=== PATIENT | male | born 1990 | race Caucasian/White ===

== ENCOUNTER 2017-01-14 21:29 | Emergency (ER) | payer OTHER ==
[2017-01-14 21:44] VITALS: BP 138/97; PULSE 113; RESP 20; TEMP 98.6
--- NOTE | 2017-01-14 21:59 | ED ---
ENT HPI - General Chief complaint: Dental/Oral Stated complaint: jaw pain Time Seen by Provider: 01/14/17 21:50 Source: patient Mode of arrival: ambulatory Limitations: no limitations - History of Present Illness Initial comments: 26-year-old male patient presents to emergency department today for evaluation of left lower dental pain. Patient states that this area has an bothering him on and off for the last 6 months. Patient states he has been in senior care and unable to see a dentist. Patient states his current episode has been going on for the last 4 months. He has completed one round of antibiotics roughly 3 months ago. Patient states has been taking Tylenol and ibuprofen for pain control which has been ineffective. Patient denies any fever, chills, nausea, vomiting, chest pain, shortness of breath, or any other difficulties. - Related Data Previous Rx's Medication Instructions Recorded Acetaminophen-Codeine 300-30mg 1 tab PO Q4H PRN #20 tablet 01/14/17 [Tylenol #3] Penicillin V Potassium [Pen Vee K] 500 mg PO QID #40 tab 01/14/17 Allergies Allergy/AdvReac Type Severity Reaction Status Date / Time No Known Allergies Allergy Verified 01/14/17 21:51 Review of Systems ROS Statement: Those systems with pertinent positive or pertinent negative responses have been documented in the HPI. ROS Other: All systems not noted in ROS Statement are negative. Past Medical History Past Medical History: Asthma, GERD/Reflux History of Any Multi-Drug Resistant Organisms: MRSA Date of last positivie culture/infection: 2010 MDRO Source:: penis Past Surgical History: Adenoidectomy, Appendectomy, Tonsillectomy Past Psychological History: Depression Smoking Status: Current every day smoker Past Alcohol Use History: None Reported Past Drug Use History: Marijuana General Exam Limitations: no limitations General appearance: alert, in no apparent distress Eye exam: Present: normal appearance, PERRL, EOMI. Absent: scleral icterus, conjunctival injection, periorbital swelling ENT exam: Present: normal exam, normal oropharynx, mucous membranes moist, TM's normal bilaterally, other (Dental caries noted to tooth #17 and 18.) Neck exam: Present: normal inspection. Absent: tenderness, meningismus, lymphadenopathy Respiratory exam: Present: normal lung sounds bilaterally. Absent: respiratory distress, wheezes, rales, rhonchi, stridor Cardiovascular Exam: Present: regular rate, normal rhythm, normal heart sounds. Absent: systolic murmur, diastolic murmur, rubs, gallop, clicks GI/Abdominal exam: Present: soft, normal bowel sounds. Absent: distended, tenderness, guarding, rebound, rigid Neurological exam: Present: alert, oriented X3, CN II-XII intact Psychiatric exam: Present: normal affect, normal mood Skin exam: Present: warm, dry, intact, normal color. Absent: rash Course Vital Signs 01/14/17 21:40 Temperature 98.6 F Pulse Rate 113 H Respiratory 20 Rate Blood Pressure 138/97 O2 Sat by Pulse 98 Oximetry Medical Decision Making - Medical Decision Making 26-year-old male patient presented for evaluation of left lower dental pain. Physical exam revealed multiple dental caries to the 17th and 18th tooth. Patient will be given a prescription for antibiotics as well as pain medication to get him through until he follows up with a dentist. Patient given number for the dental clinic in town here. Patient also instructed to return for any new, worsening, or concerning symptoms. Patient verbalizes understanding and agrees with this plan. Disposition Clinical Impression: Dental caries, Pain due to dental caries Disposition: HOME SELF-CARE Condition: Stable Instructions: Toothache (ED), Dental Caries (ED) Additional Instructions: Please follow up with the [facility] dental clinic. [facility] [place] [address]. Phone number for new patients or for existing patients. Take pain medications as directed. Return for new , worsening, or concerning symptoms. Prescriptions: Acetaminophen-Codeine 300-30mg [Tylenol #3] 1 tab PO Q4H PRN #20 tablet PRN Reason: pain Penicillin V Potassium [Pen Vee K] 500 mg PO QID #40 tab Referrals: None,Stated [Primary Care Provider] - 1-2 days Time of Disposition: 21:59
[2017-01-14] MEDS ORDERED: ACET/COD 300 MG/30 MG STARTER PACK 6 TAB BTL PO STA (22:35)
== END 2017-01-14 22:39 | disposition home or self-care (01) ==
LOC: EC 21:29
DX: K02.9 Dental caries, unspecified (principal); R68.84 Jaw pain; F17.200 Nicotine dependence, unspecified, uncomplicated
CPT/HCPCS: 99283

== ENCOUNTER 2017-03-15 23:20 | Emergency (ER) | payer OTHER ==
[2017-03-16] MEDS ORDERED: PENICILLIN V POTASSIUM 250 MG TAB PO STA (00:37)
[2017-03-16] MEDS ORDERED: Acetaminophen-Codeine 300-30mg TAB PO STA (00:37)
--- NOTE | 2017-03-16 00:41 | ED ---
ENT HPI - General Chief complaint: ENT Stated complaint: Tooth Pain Time Seen by Provider: 03/16/17 00:31 Source: patient, RN notes reviewed Mode of arrival: ambulatory Limitations: no limitations - History of Present Illness Initial comments: This is a 27-year-old male presents emergency department for dental pain. Patient has left lower dental pain for last 2 weeks. Patient states her some swelling. Denies fever or chills. Patient had prior dental problems in the past. Patient has not attempted see the dentist. He states ibuprofen was helping the pain no relief at this time. - Related Data Previous Rx's Medication Instructions Recorded Acetaminophen-Codeine 300-30mg 1 tab PO Q4H PRN #20 tablet 03/16/17 [Tylenol #3] Penicillin V Potassium [Pen Vee K] 500 mg PO QID #40 tab 03/16/17 Allergies Allergy/AdvReac Type Severity Reaction Status Date / Time No Known Allergies Allergy Verified 03/15/17 23:46 Review of Systems ROS Statement: Those systems with pertinent positive or pertinent negative responses have been documented in the HPI. ROS Other: All systems not noted in ROS Statement are negative. Past Medical History Past Medical History: Asthma, GERD/Reflux History of Any Multi-Drug Resistant Organisms: MRSA Date of last positivie culture/infection: 2010 MDRO Source:: penis Past Surgical History: Adenoidectomy, Appendectomy, Tonsillectomy Past Psychological History: Depression Smoking Status: Current every day smoker Past Alcohol Use History: None Reported Past Drug Use History: Marijuana General Exam Limitations: no limitations General appearance: alert, in no apparent distress ENT exam: Present: mucous membranes moist. Absent: normal oropharynx (dental caries, no abscess) Neck exam: Present: normal inspection, full ROM. Absent: tenderness, meningismus, lymphadenopathy Respiratory exam: Present: normal lung sounds bilaterally. Absent: respiratory distress, wheezes, rales, rhonchi, stridor Cardiovascular Exam: Present: regular rate, normal rhythm, normal heart sounds. Absent: systolic murmur, diastolic murmur, rubs, gallop, clicks Course Vital Signs 03/15/17 23:44 Temperature 98.6 F Pulse Rate 50 L Respiratory 16 Rate Blood Pressure 184/116 O2 Sat by Pulse 98 Oximetry Disposition Clinical Impression: Pain due to dental caries Disposition: HOME SELF-CARE Condition: Stable Instructions: Toothache (ED) Additional Instructions: Please return if symptoms worsen or any other concerns Prescriptions: Acetaminophen-Codeine 300-30mg [Tylenol #3] 1 tab PO Q4H PRN #20 tablet PRN Reason: pain Penicillin V Potassium [Pen Vee K] 500 mg PO QID #40 tab Referrals: Александр Liriano MD [Primary Care Provider] - 1-2 days Time of Disposition: 00:40
[2017-03-16 00:54] VITALS: BP 157/86; PULSE 62; RESP 17; TEMP 98.7
== END 2017-03-16 00:52 | disposition home or self-care (01) ==
LOC: EC 23:20
DX: K02.9 Dental caries, unspecified (principal); F17.200 Nicotine dependence, unspecified, uncomplicated; Z86.14 Personal history of Methicillin resistant Staphylococcus aureus infection
CPT/HCPCS: 99282

== ENCOUNTER 2017-03-21 21:05 | Emergency (ER) | payer OTHER ==
--- NOTE | 2017-03-21 21:46 | ED ---
ENT HPI - General Chief complaint: Dental/Oral Stated complaint: Dental Pain Time Seen by Provider: 03/21/17 21:27 Source: patient Mode of arrival: ambulatory Limitations: no limitations - History of Present Illness MD complaint: tooth pain -: month(s) Location: tooth # (18) Severity: severe Quality: aching Consistency: constant Improves with: other medication Worsens with: none Context- Dental: history of dental caries Associated Symptoms: toothache - Related Data Previous Rx's Medication Instructions Recorded Penicillin V Potassium [Pen Vee K] 500 mg PO QID #40 tab 03/16/17 Acetaminophen-Codeine 300-30mg 1 tab PO Q4H PRN #20 tablet 03/21/17 [Tylenol w/codeine #3] Ibuprofen [Motrin] 600 mg PO Q8HR PRN #20 tab 03/21/17 Penicillin V Potassium [Pen Vee K] 500 mg PO QID #28 tab 03/21/17 Allergies Allergy/AdvReac Type Severity Reaction Status Date / Time No Known Allergies Allergy Verified 03/21/17 21:15 Review of Systems ROS Statement: Those systems with pertinent positive or pertinent negative responses have been documented in the HPI. ROS Other: All systems not noted in ROS Statement are negative. Constitutional: Denies: fever, chills Eyes: Denies: eye pain, vision change ENT: Reports: dental pain. Denies: ear pain Respiratory: Denies: cough, dyspnea Neurological: Denies: headache Past Medical History Past Medical History: Asthma, GERD/Reflux History of Any Multi-Drug Resistant Organisms: MRSA Date of last positivie culture/infection: 2010 MDRO Source:: penis Past Surgical History: Adenoidectomy, Appendectomy, Tonsillectomy Past Psychological History: Depression Smoking Status: Current every day smoker Past Alcohol Use History: Rare Past Drug Use History: Marijuana General Exam Limitations: no limitations General appearance: alert, in no apparent distress Head exam: Present: atraumatic, normocephalic, normal inspection Eye exam: Present: normal appearance, PERRL, EOMI. Absent: scleral icterus, conjunctival injection ENT exam: Present: mucous membranes moist, TM's normal bilaterally, normal external ear exam, other (Tooth #18 has some caries and there is some adjacent swelling and tenderness though no discrete palpable abscess.) Neck exam: Present: normal inspection, full ROM. Absent: tenderness, meningismus, lymphadenopathy Neurological exam: Present: alert Skin exam: Present: warm, dry, intact, normal color Course Vital Signs 03/21/17 21:08 Temperature 97.7 F Pulse Rate 62 Respiratory 18 Rate Blood Pressure 189/115 O2 Sat by Pulse 96 Oximetry Disposition Clinical Impression: Dental caries, Toothache, Hypertension Disposition: HOME SELF-CARE Condition: Fair Instructions: Dental Caries (ED), Hypertension (ED) Prescriptions: Acetaminophen-Codeine 300-30mg [Tylenol w/codeine #3] 1 tab PO Q4H PRN #20 tablet PRN Reason: Pain Ibuprofen [Motrin] 600 mg PO Q8HR PRN #20 tab PRN Reason: Pain Penicillin V Potassium [Pen Vee K] 500 mg PO QID #28 tab Referrals: Александр Liriano MD [Primary Care Provider] - 1-2 days
[2017-03-21] MEDS ORDERED: cloNIDine HCL 0.2 MG TAB PO STA (21:56)
[2017-03-21] MEDS ORDERED: IBUPROFEN 400 MG TAB PO STA (21:56)
[2017-03-21 22:50] VITALS: BP 184/90; PULSE 62; RESP 18
[2017-03-21 22:59] VITALS: TEMP 98
== END 2017-03-21 22:51 | disposition home or self-care (01) ==
LOC: EC 21:05
DX: K02.9 Dental caries, unspecified (principal); I10 Essential (primary) hypertension; F17.200 Nicotine dependence, unspecified, uncomplicated
CPT/HCPCS: 99282

== ENCOUNTER 2017-08-14 00:14 | Emergency (ER) | payer OTHER ==
--- NOTE | 2017-08-14 01:12 | XR ---
EXAMINATION TYPE: XR foot complete RT DATE OF EXAM: 08/14/2017 COMPARISON: NONE HISTORY: Pain TECHNIQUE: 3 views FINDINGS: I see no fracture nor dislocation. Joint spaces are normal. Metatarsals are intact. IMPRESSION: Negative right foot exam.
--- NOTE | 2017-08-14 01:43 | ED ---
Wound/Laceration HPI - General Chief Complaint: Wound/Laceration Stated Complaint: foot lac Time Seen by Provider: 08/14/17 00:28 Source: patient, RN notes reviewed, old records reviewed Mode of arrival: ambulatory Limitations: no limitations - History of Present Illness Initial Comments: 27 year old male with CC of right foot laceration proximal to great toe after dropping a knife on his foot. Patient reports it was accidental. Patient states that he cannot extend his great toe, he can flex it. Patient reports that the wound is deep, and is concerned for tendon rupture. Patient denies peripheral paresthesias. Pt is up to date on tetanus. Patient denies any other injury. - Related Data Previous Rx's Medication Instructions Recorded Penicillin V Potassium [Pen Vee K] 500 mg PO QID #40 tab 03/16/17 Acetaminophen-Codeine 300-30mg 1 tab PO Q4H PRN #20 tablet 03/21/17 [Tylenol w/codeine #3] Ibuprofen [Motrin] 600 mg PO Q8HR PRN #20 tab 03/21/17 Penicillin V Potassium [Pen Vee K] 500 mg PO QID #28 tab 03/21/17 Allergies Allergy/AdvReac Type Severity Reaction Status Date / Time No Known Allergies Allergy Verified 08/14/17 00:24 Review of Systems ROS Statement: Those systems with pertinent positive or pertinent negative responses have been documented in the HPI. ROS Other: All systems not noted in ROS Statement are negative. Constitutional: Denies: fever, chills Eyes: Denies: eye pain ENT: Denies: ear pain Respiratory: Denies: cough (d), dyspnea Cardiovascular: Denies: chest pain, palpitations Endocrine: Denies: fatigue Gastrointestinal: Denies: abdominal pain Genitourinary: Denies: dysuria Musculoskeletal: Denies: back pain Neurological: Denies: headache Psychiatric: Denies: depression Hematological/Lymphatic: Denies: easy bleeding Past Medical History Past Medical History: Asthma, GERD/Reflux History of Any Multi-Drug Resistant Organisms: MRSA Date of last positivie culture/infection: 2010 MDRO Source:: penis Past Surgical History: Adenoidectomy, Appendectomy, Tonsillectomy Past Psychological History: Depression Smoking Status: Current every day smoker Past Alcohol Use History: Rare Past Drug Use History: Marijuana General Exam - General Exam Comments Initial Comments: 27 year old male, patient appears intoxicated. Limitations: no limitations General appearance: alert, in no apparent distress, appears intoxicated Head exam: Present: atraumatic, normocephalic, normal inspection Eye exam: Present: normal appearance, PERRL, EOMI. Absent: scleral icterus, conjunctival injection, periorbital swelling ENT exam: Present: normal exam, mucous membranes moist Neck exam: Present: normal inspection. Absent: tenderness, meningismus, lymphadenopathy Cardiovascular Exam: Present: regular rate, normal rhythm, normal heart sounds. Absent: systolic murmur, diastolic murmur, rubs, gallop, clicks Extremities exam: Present: normal inspection, full ROM, normal capillary refill. Absent: tenderness, pedal edema, joint swelling, calf tenderness Right Ankle exam: Present: normal inspection, full ROM Foot/Toe exam: Present: tenderness, abrasion, laceration (2cm deep laceration proximal to proximal Interphalangeal joint of first r great toe. Evidence of extensortendon separataion. ). Absent: normal inspection, full ROM Neurovascular tendon exam: Present: no vascular compromise Gait: observed and limited by pain Back exam: Present: normal inspection Neurological exam: Present: alert, oriented X3, CN II-XII intact Psychiatric exam: Present: normal affect, normal mood Course Vital Signs 08/14/17 08/14/17 00:21 02:39 Temperature 98.4 F 97.9 F Pulse Rate 94 76 Respiratory 16 18 Rate Blood Pressure 137/86 136/77 O2 Sat by Pulse 100 96 Oximetry Procedures - Laceration Laceration #1 Indication: laceration Site: foot (proximal to right great toe. ) Size (cm): 2 Description: linear Depth: involves tendon (extensor hallux tendon. ) Anesthetic Used: lidocaine 1% Anesthesia Technique: local infiltration Amount (mls): 4 Pre-repair: wound explored, irrigated extensively Type of Sutures: nylon Size of Sutures: 5-0 Number of Sutures: 4 Technique: simple, interrupted Medical Decision Making - Medical Decision Making 27 year old male with CC of right foot laceration proximal to great toe after dropping a knife on his foot. Patient reports it was accidental. Patient states that he cannot extend his great toe, he can flex it. There does appear to be extensor tendon laceration as well. Wound was irrigated. No fruacture noted on Xray. PAtient wound loosely closed with 4 sutures. Patient will be given referral for ortho in regards to tendon disruption. Discussed monitor for infection and wound care instructions given. Return paramters discussed. - Radiology Data Radiology results: report reviewed No evidence of fracture. Soft tissue swelling noted. Disposition Clinical Impression: Laceration of right foot with tendon involvement Disposition: HOME SELF-CARE Condition: Good Instructions: Laceration (ED), Tendon Laceration (ED) Additional Instructions: patient has a follow-up with orthopedic in regards to tendon laceration. Patient should monitor for any signs of infection over laceration including redness swelling or drainage.Please return to the emergency room in 8-10 days to have sutures removed. Please leave wound covered for the first 24-48 hours and then leave open to air after that time. Please use clean soap and water to clean the suture area to prevent scabbing over the top of your sutures. Please watch for any signs of infection which may include but not limited to increased pain, swelling, redness, fever or chills. Please return to the emergency room if any signs of infection do occur. Please return to the emergency room for any other concerns or complications. Referrals: Александр Liriano MD [Primary Care Provider] - 1-2 days Tiago Clancy MD [Medical Doctor] - 1-2 days Time of Disposition: 01:42
[2017-08-14 02:41] VITALS: BP 136/77; PULSE 76; RESP 18; TEMP 97.9
== END 2017-08-14 02:42 | disposition home or self-care (01) ==
LOC: EC 00:14
DX: S96.921A Laceration of unspecified muscle and tendon at ankle and foot level, right foot, initial encounter (principal); F17.200 Nicotine dependence, unspecified, uncomplicated; Z86.14 Personal history of Methicillin resistant Staphylococcus aureus infection; W26.0XXA Contact with knife, initial encounter
CPT/HCPCS: 12001; 99283

== ENCOUNTER 2017-12-01 09:45 | Emergency (ER) | payer OTHER ==
[2017-12-01 09:55] VITALS: TEMP 98.4
[2017-12-01] MEDS ORDERED: ONDANSETRON 4 MG/2 ML VIAL IVP STA (10:11)
[2017-12-01] MEDS ORDERED: SODIUM CHLORIDE 0.9% 1,000 ML IV STA (10:11)
[2017-12-01] MEDS ORDERED: ONDANSETRON ODT 4 MG TAB PO STA (10:11)
[2017-12-01] MEDS ORDERED: diphenhydrAMINE 50 MG/ML 1 ML VIAL IVP STA (10:11)
[2017-12-01] MEDS ORDERED: KETOROLAC 30 MG/ML 1 ML VIAL IVP STA (10:11)
[2017-12-01] MEDS ORDERED: SODIUM CHLORIDE 0.9% 500 ML IV STA (10:11)
--- NOTE | 2017-12-01 10:13 | ED ---
Nausea/Vomiting/Diarrhea HPI - General Chief complaint: Nausea/Vomiting/Diarrhea Stated complaint: Vomiting Time Seen by Provider: 12/01/17 09:57 Source: patient, RN notes reviewed Mode of arrival: ambulatory Limitations: no limitations - History of Present Illness Initial comments: This a 27-year-old male presents emergency Department chief complaint of nausea vomiting. Patient states symptoms started last night he has not felt well prior to this. He had a reported fever at home with at 102. He states he is able acute some food down today with states she still does not feel well. Patient is requesting a work no. Patient denies any dizziness but complains of mild headache at this time. Denies any neck pain or neck stiffness. He's had multiple contacts with some her symptoms. - Related Data Home Medications Medication Instructions Recorded Confirmed Dextroamphetamine/Amphetamine 20 mg PO BID 12/01/17 12/01/17 [Adderall] QUEtiapine [SEROquel] 50 mg PO HS 12/01/17 12/01/17 buPROPion HCL [Wellbutrin SR] 30 mg PO QAM 12/01/17 12/01/17 Previous Rx's Medication Instructions Recorded Ondansetron Odt [Zofran Odt] 4 mg PO Q8HR PRN #10 tab 12/01/17 Allergies Allergy/AdvReac Type Severity Reaction Status Date / Time No Known Allergies Allergy Verified 12/01/17 10:10 Review of Systems ROS Statement: Those systems with pertinent positive or pertinent negative responses have been documented in the HPI. ROS Other: All systems not noted in ROS Statement are negative. Past Medical History Past Medical History: Asthma, GERD/Reflux History of Any Multi-Drug Resistant Organisms: MRSA Date of last positivie culture/infection: 2010 MDRO Source:: penis Past Surgical History: Adenoidectomy, Appendectomy, Tonsillectomy Past Psychological History: Depression Smoking Status: Current every day smoker Past Alcohol Use History: Rare Past Drug Use History: Marijuana General Exam General appearance: alert, in no apparent distress Head exam: Present: atraumatic, normocephalic, normal inspection Eye exam: Present: normal appearance, PERRL, EOMI. Absent: scleral icterus, conjunctival injection, periorbital swelling ENT exam: Present: normal exam, normal oropharynx, mucous membranes moist, TM's normal bilaterally, normal external ear exam Neck exam: Present: normal inspection, full ROM. Absent: tenderness, meningismus, lymphadenopathy Respiratory exam: Present: normal lung sounds bilaterally. Absent: respiratory distress, wheezes, rales, rhonchi, stridor Cardiovascular Exam: Present: regular rate, normal rhythm, normal heart sounds. Absent: systolic murmur, diastolic murmur, rubs, gallop, clicks GI/Abdominal exam: Present: soft, normal bowel sounds. Absent: distended, tenderness, guarding, rebound, rigid Course Vital Signs 12/01/17 09:51 Temperature 98.4 F Pulse Rate 84 Respiratory 18 Rate Blood Pressure 133/79 O2 Sat by Pulse 98 Oximetry Medical Decision Making - Medical Decision Making 19-year-old male presented, chief complaint of nausea vomiting. Patient states that he feels better after IV fluids and antiemetics. Patient be discharged with a work no return parameters were discussed. Patient has gastroenteritis. - Lab Data Result diagrams: 12/01/17 10:33 12/01/17 10:33 Lab Results 12/01/17 12/01/17 Range/Units 10:33 10:33 WBC 4.5 (3.8-10.6) k/uL RBC 5.21 (4.30-5.90) m/uL Hgb 15.8 (13.0-17.5) gm/dL Hct 47.5 (39.0-53.0) % MCV 91.2 (80.0-100.0) fL MCH 30.3 (25.0-35.0) pg MCHC 33.3 (31.0-37.0) g/dL RDW 12.5 (11.5-15.5) % Plt Count 159 (150-450) k/uL Neutrophils % 62 % Lymphocytes % 24 % Monocytes % 8 % Eosinophils % 2 % Basophils % 1 % Neutrophils # 2.8 (1.3-7.7) k/uL Lymphocytes # 1.1 (1.0-4.8) k/uL Monocytes # 0.4 (0-1.0) k/uL Eosinophils # 0.1 (0-0.7) k/uL Basophils # 0.0 (0-0.2) k/uL Sodium 141 (137-145) mmol/L Potassium 4.4 (3.5-5.1) mmol/L Chloride 103 (98-107) mmol/L Carbon Dioxide 30 (22-30) mmol/L Anion Gap 8 mmol/L BUN 11 (9-20) mg/dL Creatinine 0.80 (0.66-1.25) mg/dL Est GFR (MDRD) Af Amer >60 (>60 ml/min/1.73 sqM) Est GFR (MDRD) Non-Af >60 (>60 ml/min/1.73 sqM) Glucose 101 H (74-99) mg/dL Calcium 9.2 (8.4-10.2) mg/dL Total Bilirubin 0.2 (0.2-1.3) mg/dL AST 26 (17-59) U/L ALT 31 (21-72) U/L Alkaline Phosphatase 65 (38-126) U/L Total Protein 5.9 L (6.3-8.2) g/dL Albumin 3.7 (3.5-5.0) g/dL Amylase 48 (30-110) U/L Lipase 59 (23-300) U/L Disposition Clinical Impression: Gastroenteritis Disposition: HOME SELF-CARE Condition: Stable Instructions: Acute Nausea and Vomiting (ED) Additional Instructions: Please return to the Emergency Department if symptoms worsen or any other concerns. Prescriptions: Ondansetron Odt [Zofran Odt] 4 mg PO Q8HR PRN #10 tab PRN Reason: Nausea Referrals: Александр Liriano MD [Primary Care Provider] - 1-2 days Time of Disposition: 12:07
[2017-12-01 11:04] LABS: ALT 31 U/L (21-72); AST 26 U/L (17-59); Albumin 3.7 g/dL (3.5-5.0); Alkaline Phosphatase 65 U/L (38-126); Amylase 48 U/L (30-110); Anion Gap 8 mmol/L; Blood Urea Nitrogen 11 mg/dL (9-20); Calcium 9.2 mg/dL (8.4-10.2); Carbon Dioxide 30 mmol/L (22-30); Chloride 103 mmol/L (98-107); Glucose 101 mg/dL (74-99); Lipase 59 U/L (23-300); Potassium 4.4 mmol/L (3.5-5.1); Sodium 141 mmol/L (137-145); Total Bilirubin 0.2 mg/dL (0.2-1.3); Total Protein 5.9 g/dL (6.3-8.2)
[2017-12-01 11:32] LABS: Basophils % (A) 1 %; Eosinophils # (A) 0.1 k/uL (0-0.7); Eosinophils % (A) 2 %; HCT 47.5 % (39.0-53.0); HGB 15.8 gm/dL (13.0-17.5); Lymphocytes # (A) 1.1 k/uL (1.0-4.8); Lymphocytes % (A) 24 %; MCH 30.3 pg (25.0-35.0); MCHC 33.3 g/dL (31.0-37.0); MCV 91.2 fL (80.0-100.0); Mean Platelet Volume 7.8; Monocytes # (A) 0.4 k/uL (0-1.0); Monocytes % (A) 8 %; Neutrophils # (A) 2.8 k/uL (1.3-7.7); Neutrophils % (A) 62 %; Platelet Count 159 k/uL (150-450); RBC 5.21 m/uL (4.30-5.90); RDW 12.5 % (11.5-15.5); WBC 4.5 k/uL (3.8-10.6)
[2017-12-01 12:23] VITALS: BP 123/80; PULSE 71; RESP 16
== END 2017-12-01 12:23 | disposition home or self-care (01) ==
LOC: EC 09:45
DX: K52.9 Noninfective gastroenteritis and colitis, unspecified (principal); R51 Headache; F32.9 Major depressive disorder, single episode, unspecified; F17.200 Nicotine dependence, unspecified, uncomplicated; Z86.14 Personal history of Methicillin resistant Staphylococcus aureus infection; Z90.49 Acquired absence of other specified parts of digestive tract; Z79.899 Other long term (current) drug therapy
CPT/HCPCS: 99284; 96374; 96375 ×2; 96361 ×2; 36415; 80053; 82150; 83690; 85025; J1200; J2405; J1885

== ENCOUNTER 2018-01-31 22:48 | Emergency (ER) | payer SELFPAY ==
[2018-01-31 22:55] VITALS: TEMP 97.5
--- NOTE | 2018-01-31 23:52 | XR ---
EXAMINATION TYPE: XR chest 2V DATE OF EXAM: 01/31/2018 COMPARISON: May 06, 2016 HISTORY: Chest pain TECHNIQUE: Frontal and lateral views of the chest are obtained. FINDINGS: Heart and mediastinum are normal. Lungs are clear. Diaphragm is normal. Bony thorax appear s normal. IMPRESSION: Normal chest. No change.
[2018-02-01 00:13] LABS: Basophils % (A) 1 %; Eosinophils # (A) 0.5 k/uL (0-0.7); Eosinophils % (A) 7 %; HCT 43.7 % (39.0-53.0); HGB 15.2 gm/dL (13.0-17.5); Lymphocytes # (A) 3.5 k/uL (1.0-4.8); Lymphocytes % (A) 46 %; MCH 30.5 pg (25.0-35.0); MCHC 34.8 g/dL (31.0-37.0); MCV 87.9 fL (80.0-100.0); Mean Platelet Volume 7.6; Monocytes # (A) 0.5 k/uL (0-1.0); Monocytes % (A) 6 %; Neutrophils # (A) 2.9 k/uL (1.3-7.7); Neutrophils % (A) 39 %; Platelet Count 204 k/uL (150-450); RBC 4.97 m/uL (4.30-5.90); RDW 12.8 % (11.5-15.5); WBC 7.6 k/uL (3.8-10.6)
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
[2018-02-01 00:22] LABS: ALT 26 U/L (21-72); AST 18 U/L (17-59); Alkaline Phosphatase 76 U/L (38-126); Anion Gap 13 mmol/L; Blood Urea Nitrogen 15 mg/dL (9-20); Calcium 9.4 mg/dL (8.4-10.2); Carbon Dioxide 26 mmol/L (22-30); Chloride 103 mmol/L (98-107); Glucose 98 mg/dL (74-99); Potassium 4.1 mmol/L (3.5-5.1); Sodium 142 mmol/L (137-145); Total Bilirubin 0.3 mg/dL (0.2-1.3); Total Protein 6.3 g/dL (6.3-8.2)
--- NOTE | 2018-02-01 00:57 | XR ---
History hand pain. Injury. Comparison none. TECHNIQUE: 3 views. FINDINGS: Metacarpals are intact. I see no fracture nor dislocation. Soft tissues appear normal. Joint spaces a re normal. CONCLUSION: Normal left hand.
[2018-02-01 01:22] VITALS: BP 119/70; PULSE 71; RESP 16
== END 2018-02-01 01:23 | disposition home or self-care (01) ==
LOC: EC 22:48
DX: S69.92XA Unspecified injury of left wrist, hand and finger(s), initial encounter (principal); R07.9 Chest pain, unspecified; F32.9 Major depressive disorder, single episode, unspecified; F41.9 Anxiety disorder, unspecified; F17.200 Nicotine dependence, unspecified, uncomplicated; Z86.14 Personal history of Methicillin resistant Staphylococcus aureus infection; Z79.899 Other long term (current) drug therapy; W20.8XXA Other cause of strike by thrown, projected or falling object, initial encounter
CPT/HCPCS: 36415; 71046; 80053; 84484; 85025; 85379; 93005; 99284

== ENCOUNTER 2018-04-17 20:40 | Emergency (ER) | payer OTHER ==
[2018-04-17 20:56] VITALS: BP 127/80; PULSE 76; RESP 18; TEMP 98.3
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
--- NOTE | 2018-04-17 21:32 | XR ---
EXAMINATION TYPE: XR foot complete LT DATE OF EXAM: 04/17/2018 CLINICAL HISTORY: Pain and swelling after fall injury yesterday TECHNIQUE: Frontal, lateral, and oblique images of the left foot are obtained. COMPARISON: None FINDINGS: On all 3 views there is linear lucency consistent with acute nondisplaced transverse fractu re of base of fifth metatarsal with mild adjacent focal swelling seen best on oblique image. Joint sp aces are preserved. IMPRESSION: There is acute nondisplaced transverse fracture through base of fifth metatarsal. (Estevez type fracture) (Initially encounter closed type posttraumatic fracture).
== END 2018-04-17 22:06 | disposition home or self-care (01) ==
LOC: EC 20:40
DX: S92.352A Displaced fracture of fifth metatarsal bone, left foot, initial encounter for closed fracture (principal); F17.200 Nicotine dependence, unspecified, uncomplicated; Z86.14 Personal history of Methicillin resistant Staphylococcus aureus infection; W19.XXXA Unspecified fall, initial encounter
CPT/HCPCS: 29515; 99283

== ENCOUNTER 2018-08-30 14:08 | Emergency (ER) | payer OTHER ==
[2018-08-30 14:43] VITALS: RESP 18
[2018-08-30 16:03] LABS: Basophils % (A) 1 %; Eosinophils # (A) 0.5 k/uL (0-0.7); Eosinophils % (A) 7 %; HCT 44.5 % (39.0-53.0); HGB 15.2 gm/dL (13.0-17.5); Lymphocytes # (A) 2.3 k/uL (1.0-4.8); Lymphocytes % (A) 31 %; MCH 30.9 pg (25.0-35.0); MCHC 34.2 g/dL (31.0-37.0); MCV 90.4 fL (80.0-100.0); Mean Platelet Volume 7.5; Monocytes # (A) 0.4 k/uL (0-1.0); Monocytes % (A) 6 %; Neutrophils # (A) 3.9 k/uL (1.3-7.7); Neutrophils % (A) 54 %; Platelet Count 191 k/uL (150-450); RBC 4.92 m/uL (4.30-5.90); RDW 12.6 % (11.5-15.5); WBC 7.3 k/uL (3.8-10.6)
[2018-08-30 16:06] LABS: Appearance,Urine Clear (Clear); Bilirubin,Urine Negative (Negative); Blood,Urine Negative (Negative); Color,Urine Yellow; Glucose,Urine (UA) Negative (Negative); Hyaline Casts,Urine 2 /lpf (0-2); Ketones,Urine Negative (Negative); Leukocyte Esterase,Urine Negative (Negative); Mucus,Urine Many /hpf; Nitrite,Urine Negative (Negative); PH, Urine 5.5 (5.0-8.0); Protein,Urine 1+ (Negative); RBC,Urine 1 /hpf (0-5); Specific Gravity,Urine 1.027 (1.001-1.035); Squamous Epithelial Cell,Urine <1 /hpf (0-4); Urobilinogen,Urine <2.0 mg/dL (<2.0); WBC,Urine 2 /hpf (0-5)
[2018-08-30 16:12] LABS: ALT 21 U/L (21-72); AST 22 U/L (17-59); Albumin 3.9 g/dL (3.5-5.0); Alkaline Phosphatase 68 U/L (38-126); Amylase 57 U/L (30-110); Anion Gap 9 mmol/L; Blood Urea Nitrogen 11 mg/dL (9-20); Calcium 9.5 mg/dL (8.4-10.2); Carbon Dioxide 24 mmol/L (22-30); Chloride 107 mmol/L (98-107); Glucose 100 mg/dL (74-99); Lipase 51 U/L (23-300); Potassium 4.1 mmol/L (3.5-5.1); Sodium 140 mmol/L (137-145); Total Bilirubin 0.7 mg/dL (0.2-1.3); Total Protein 6.5 g/dL (6.3-8.2)
[2018-08-30] MEDS ORDERED: AZITHROMYCIN 500 MG TAB PO STA (16:44)
[2018-08-30] MEDS ORDERED: cefTRIAXone 250 MG VIAL IM STA (16:44)
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
[2018-08-30 16:51] VITALS: BP 136/82; PULSE 72; TEMP 98
[2018-08-31 04:44] LABS: HIV 1 AB Non-Reactive (Non-Reactive); HIV AB P24 Non-Reactive (Non-Reactive); HIV P24 AG Non-Reactive (Non-Reactive)
[2018-08-31 13:07] LABS: C. trachomatis,PCR Negative (Neg,Equiv); Chlamydia trachomatis Source Urine; N. gonorrhoeae,PCR Negative (Neg,Equiv); Neisseria Source Urine
== END 2018-08-30 17:23 | disposition other institution (70) ==
LOC: EC 14:08
DX: Z20.2 Contact with and (suspected) exposure to infections with a predominantly sexual mode of transmission (principal); R30.0 Dysuria; R19.7 Diarrhea, unspecified; F17.200 Nicotine dependence, unspecified, uncomplicated; Z86.14 Personal history of Methicillin resistant Staphylococcus aureus infection; Z90.49 Acquired absence of other specified parts of digestive tract
CPT/HCPCS: 36415; 80053; 82150; 83690; 85025; 81001; 87491; 87591; 87390; 99285; 96372; J0696

== ENCOUNTER 2019-03-13 12:11 | Emergency (ER) | payer BC, OTHER ==
[2019-03-13 12:17] VITALS: BP 146/96; PULSE 64; RESP 16; TEMP 98.1
--- NOTE | 2019-03-13 12:39 | ED ---
General Adult HPI - General Chief complaint: Dental/Oral Stated complaint: dental Time Seen by Provider: 03/13/19 12:20 Source: patient, RN notes reviewed, old records reviewed Mode of arrival: ambulatory Limitations: no limitations - History of Present Illness Initial comments: 29-year-old male with one year of intermittent left lower dental pain. Patient has a fractured tooth on the left. He's had intermittent drainage from the base of this tooth. No fever chills. Patient is otherwise healthy. Pain is been worsening over the past several days. He is not taking any medication. He is not currently on any antibiotics. - Related Data Previous Rx's Medication Instructions Recorded Amoxic-Pot Clav 875-125Mg 1 tab PO Q12HR #14 tablet 03/13/19 [Augmentin 875-125] Ibuprofen [Motrin] 600 mg PO Q8HR PRN #24 tab 03/13/19 Allergies Allergy/AdvReac Type Severity Reaction Status Date / Time No Known Allergies Allergy Verified 03/13/19 12:17 Review of Systems ROS Statement: Those systems with pertinent positive or pertinent negative responses have been documented in the HPI. ROS Other: All systems not noted in ROS Statement are negative. Past Medical History Past Medical History: Asthma, GERD/Reflux History of Any Multi-Drug Resistant Organisms: MRSA Date of last positivie culture/infection: 2010 MDRO Source:: penis Past Surgical History: Adenoidectomy, Appendectomy, Tonsillectomy Past Psychological History: Anxiety, Depression Smoking Status: Current every day smoker Past Alcohol Use History: Occasional Past Drug Use History: Marijuana General Exam Limitations: no limitations General appearance: alert, in no apparent distress Head exam: Present: atraumatic, normocephalic Eye exam: Present: normal appearance ENT exam: Present: other (Tooth #19 is fractured with some erythema at the gumline) Neck exam: Present: normal inspection. Absent: tenderness, meningismus Respiratory exam: Present: normal lung sounds bilaterally. Absent: respiratory distress Cardiovascular Exam: Present: regular rate, normal rhythm GI/Abdominal exam: Present: soft. Absent: distended, tenderness, guarding Course Vital Signs 03/13/19 12:15 Temperature 98.1 F Pulse Rate 64 Respiratory 16 Rate Blood Pressure 146/96 O2 Sat by Pulse 98 Oximetry Medical Decision Making - Medical Decision Making 29-year-old male with intermittent toothache pain for one year. He does have a fractured tooth #19. He is describing symptoms consistent with pulpitis and dental abscess. No drainable abscess at the time my evaluation. No facial swelling. Patient is otherwise well-appearing, no trismus, no fever or signs of sepsis. He started on Augmentin, given Motrin for pain. He will follow-up with his dentist for either extraction or root canal. Disposition Clinical Impression: Dental caries, Fracture of tooth, Dental abscess Disposition: HOME SELF-CARE Condition: Good Instructions (If sedation given, give patient instructions): Dental Abscess (ED), Dental Caries (ED), Toothache (ED) Additional Instructions: Please follow up with your dentist as soon as possible. Prescriptions: Amoxic-Pot Clav 875-125Mg [Augmentin 875-125] 1 tab PO Q12HR #14 tablet Ibuprofen [Motrin] 600 mg PO Q8HR PRN #24 tab PRN Reason: Pain Is patient prescribed a controlled substance at d/c from ED?: No Referrals: None,Stated [Primary Care Provider] - 1-2 days Time of Disposition: 12:38
== END 2019-03-13 13:17 | disposition home or self-care (01) ==
LOC: EC 12:11
DX: S02.5XXA Fracture of tooth (traumatic), initial encounter for closed fracture (principal); K02.9 Dental caries, unspecified; K04.7 Periapical abscess without sinus; F17.200 Nicotine dependence, unspecified, uncomplicated; Z86.14 Personal history of Methicillin resistant Staphylococcus aureus infection
CPT/HCPCS: 99283

== ENCOUNTER 2019-07-09 16:05 | Emergency (ER) | payer BC, OTHER ==
[2019-07-09 16:11] VITALS: BP 119/77; PULSE 90; RESP 18; TEMP 98.5
[2019-07-09] MEDS ORDERED: IPRATROPIUM-ALBUTEROL 3 ML NEB INHALATION STA (16:24)
--- NOTE | 2019-07-09 16:34 | XR ---
EXAMINATION TYPE: XR chest 2V DATE OF EXAM: 07/09/2019 COMPARISON: 01/31/2018 HISTORY: Short of breath TECHNIQUE: Frontal and lateral views of the chest are obtained. FINDINGS: Heart and mediastinum are normal. Lungs are clear. Diaphragm is normal. Bony thorax appear s normal. Pulmonary vascularity is normal. IMPRESSION: Normal chest. No change.
--- NOTE | 2019-07-09 16:40 | ED ---
General Adult HPI - General Chief complaint: Shortness of Breath Stated complaint: Chest Pain Time Seen by Provider: 07/09/19 16:20 Source: patient, RN notes reviewed Mode of arrival: ambulatory Limitations: no limitations - History of Present Illness Initial comments: This a 29-year-old male presents emergency Department with chief complaint of cough congestion and wheezing. Patient states he has been sick over the last few weeks. Patient states that he just does not take care of himself. He denies any current chest pain or palpitations. Patient states she does have some tightness in wheezing noted. He is a daily smoker. Patient states he's had no recent fever, chills he said mild nasal congestion with a productive cough. No sick contacts. Patient did cc an inhaler but does not have any current inhaler. - Related Data Previous Rx's Medication Instructions Recorded Amoxic-Pot Clav 875-125Mg 1 tab PO Q12HR #14 tablet 03/13/19 [Augmentin 875-125] Ibuprofen [Motrin] 600 mg PO Q8HR PRN #24 tab 03/13/19 Albuterol Sulfate [Proair Hfa] 1 - 2 puff INHALATION Q4HR PRN #1 07/09/19 inhaler Azithromycin [Zithromax Z-pack] 0 mg PO DIRECTED #1 pack 07/09/19 predniSONE 50 mg PO DAILY #5 tab 07/09/19 Allergies Allergy/AdvReac Type Severity Reaction Status Date / Time No Known Allergies Allergy Verified 07/09/19 16:12 Review of Systems ROS Statement: Those systems with pertinent positive or pertinent negative responses have been documented in the HPI. ROS Other: All systems not noted in ROS Statement are negative. Past Medical History Past Medical History: Asthma, GERD/Reflux History of Any Multi-Drug Resistant Organisms: MRSA Date of last positivie culture/infection: 2010 MDRO Source:: penis Past Surgical History: Adenoidectomy, Appendectomy, Tonsillectomy Past Psychological History: Anxiety, Depression Smoking Status: Current every day smoker Past Alcohol Use History: Occasional Past Drug Use History: Marijuana General Exam Limitations: no limitations General appearance: alert, in no apparent distress Head exam: Present: atraumatic, normocephalic, normal inspection Eye exam: Present: normal appearance, PERRL, EOMI. Absent: scleral icterus, conjunctival injection, periorbital swelling ENT exam: Present: normal exam, normal oropharynx, mucous membranes moist Neck exam: Present: normal inspection, full ROM. Absent: tenderness, meningismus, lymphadenopathy Respiratory exam: Present: wheezes. Absent: normal lung sounds bilaterally, respiratory distress, rales, rhonchi, stridor Cardiovascular Exam: Present: regular rate, normal rhythm, normal heart sounds. Absent: systolic murmur, diastolic murmur, rubs, gallop, clicks Course Vital Signs 07/09/19 16:09 Temperature 98.5 F Pulse Rate 90 Respiratory 18 Rate Blood Pressure 119/77 O2 Sat by Pulse 97 Oximetry Medical Decision Making - Medical Decision Making 29-year-old male presented for cough congestion dyspnea. Patient had notable wheezing on exam. Patient was given 2 DuoNeb treatments emergency Department which improved his symptoms. Patient will be discharged with prednisone, Provera, antibiotics. Patient advised to follow-up.I counseled the patient for smoking cessation for greater than 3 minutes Disposition Clinical Impression: Acute bronchitis with bronchospasm, Dyspnea Disposition: HOME SELF-CARE Condition: Stable Instructions (If sedation given, give patient instructions): Bronchospasm (ED), Acute Bronchitis (ED) Additional Instructions: Please return to the Emergency Department if symptoms worsen or any other concerns. Prescriptions: predniSONE 50 mg PO DAILY #5 tab Albuterol Sulfate [Proair Hfa] 1 - 2 puff INHALATION Q4HR PRN #1 inhaler PRN Reason: difficulty in breathing Azithromycin [Zithromax Z-pack] 0 mg PO DIRECTED #1 pack Is patient prescribed a controlled substance at d/c from ED?: No Referrals: None,Stated [Primary Care Provider] - 1-2 days Time of Disposition: 16:40
== END 2019-07-09 17:03 | disposition home or self-care (01) ==
LOC: EC 16:05
DX: J20.9 Acute bronchitis, unspecified (principal); Z71.6 Tobacco abuse counseling; F17.200 Nicotine dependence, unspecified, uncomplicated; Z86.14 Personal history of Methicillin resistant Staphylococcus aureus infection; Z90.89 Acquired absence of other organs
CPT/HCPCS: 71046; 94640; 99285; 99406

== ENCOUNTER 2019-07-28 13:35 | Emergency (ER) | payer BC, OTHER ==
[2019-07-28 13:40] VITALS: TEMP 98.2
[2019-07-28] MEDS ORDERED: IBUPROFEN 600 MG TAB PO STA (13:50)
--- NOTE | 2019-07-28 14:12 | XR ---
EXAMINATION TYPE: XR foot complete RT DATE OF EXAM: 07/28/2019 CLINICAL HISTORY: pain TECHNIQUE: Frontal, lateral and oblique images of the right foot are obtained. COMPARISON: None. FINDINGS: There is no acute fracture/dislocation evident. The joint spaces appear within normal beyer its. The overlying soft tissue appears unremarkable. IMPRESSION: There is no acute fracture or dislocation. ICD 10 NO FRACTURE, INITIAL EVALUATION
--- NOTE | 2019-07-28 14:44 | ED ---
General Adult HPI - General Chief complaint: Extremity Injury, Lower Stated complaint: rt foot injury Time Seen by Provider: 07/28/19 13:42 Source: patient, RN notes reviewed Mode of arrival: ambulatory Limitations: no limitations - History of Present Illness Initial comments: 29-year-old male with a past medical history of GERD, asthma resents to the e mergency department for right foot pain. Patient states that he was moving some weights when the bar holding the weights fell on his right foot. He states he is having pain to the right foot and pain with ambulation. States this happened just prior to arrival. Denies any other injuries. Denies any loss of sensation in the right foot. Patient has no other complaints at this time including shor tness of breath, chest pain, abdominal pain, nausea or vomiting, headache, or visual changes. - Related Data Home Medications Medication Instructions Recorded Confirmed No Known Home Medications 07/28/19 07/28/19 Allergies Allergy/AdvReac Type Severity Reaction Status Date / Time No Known Allergies Allergy Verified 07/28/19 13:57 Review of Systems ROS Statement: Those systems with pertinent positive or pertinent negative responses have been documented in the HPI. ROS Other: All systems not noted in ROS Statement are negative. Past Medical History Past Medical History: Asthma, GERD/Reflux History of Any Multi-Drug Resistant Organisms: MRSA Date of last positivie culture/infection: 2010 MDRO Source:: penis Past Surgical History: Adenoidectomy, Appendectomy, Tonsillectomy Past Psychological History: Anxiety, Depression Smoking Status: Current every day smoker Past Alcohol Use History: Occasional Past Drug Use History: Marijuana General Exam Limitations: no limitations General appearance: alert, in no apparent distress Head exam: Present: atraumatic, normocephalic, normal inspection Eye exam: Present: normal appearance, PERRL, EOMI. Absent: scleral icterus, conjunctival injection ENT exam: Present: normal exam, mucous membranes moist Neck exam: Present: normal inspection, full ROM. Absent: tenderness, meningismus, lymphadenopathy Respiratory exam: Present: normal lung sounds bilaterally. Absent: respiratory distress, wheezes, rales, rhonchi, stridor Cardiovascular Exam: Present: regular rate, normal rhythm, normal heart sounds. Absent: systolic murmur, diastolic murmur, rubs, gallop, clicks Extremities exam: Present: full ROM (Full range of motion of the right foot and all digits within the right foot.), tenderness (Tenderness noted generalized to the dorsum of the right forefoot), normal capillary refill (Capillary refill less than 2 seconds, DP pulse 2+ in the right lower extremity.), joint swelling (minimal edema with minimal erythema present in the right forefoot along the distal first second and third metatarsals. no ecchymosis on plantar aspect of foot), other (Sensation intact in the right lower extremity.). Absent: pedal edema, calf tenderness Course Vital Signs 07/28/19 13:36 Temperature 98.2 F Pulse Rate 62 Respiratory 16 Rate Blood Pressure 132/85 O2 Sat by Pulse 100 Oximetry Medical Decision Making - Medical Decision Making HPI and physical exam as documented. Neurovascular status is intact in the right lower extremity. There is minimal edema noted of the forefoot with minimal erythema area No tenderness to the medial or lateral malleolus. X-ray of the right foot was obtained which shows no acute fracture or dislocation. Patient was given fracture shoe. Patient will use crutches which he has at home. Recommended Motrin and Tylenol which was given to him. He was also given ice. I did recommend Rice therapy. He will follow up with orthopedics and return if he has any worsening symptoms. Discussed repeat x-rays in 7-10 days if symptoms persist. Disposition Clinical Impression: Contusion of right foot Disposition: HOME SELF-CARE Condition: Good Instructions (If sedation given, give patient instructions): Foot Contusion (ED) Additional Instructions: Please use fracture shoe as needed. Use crutches as needed. Take Motrin and Tylenol for pain. Rest ice and elevate the right foot. Follow-up with primary care or orthopedics in one to 2 days. Return if you're having any worsening symptoms. If symptoms do not resolve in 7-10 days you may need repeat x-rays as discussed. Is patient prescribed a controlled substance at d/c from ED?: No Referrals: [facility] [NON-STAFF] - 1-2 days Ed Fuller DO [Medical Doctor] - 1-2 days Time of Disposition: 14:43
[2019-07-28 15:23] VITALS: BP 139/68; PULSE 77; RESP 18
== END 2019-07-28 15:10 | disposition home or self-care (01) ==
LOC: EC 13:35
DX: S90.31XA Contusion of right foot, initial encounter (principal); F17.200 Nicotine dependence, unspecified, uncomplicated; Z86.14 Personal history of Methicillin resistant Staphylococcus aureus infection; W20.8XXA Other cause of strike by thrown, projected or falling object, initial encounter; Y93.89 Activity, other specified
CPT/HCPCS: 99283

== ENCOUNTER 2019-08-05 10:16 | Emergency (ER) | payer BC, OTHER ==
[2019-08-05 10:21] VITALS: TEMP 97.3
--- NOTE | 2019-08-05 10:45 | ED ---
Lower Extremity Injury HPI - General Chief Complaint: Extremity Injury, Lower Stated Complaint: Foot injury Time Seen by Provider: 08/05/19 10:22 Source: patient Mode of arrival: ambulatory Limitations: no limitations - History of Present Illness Initial Comments: Patient is a 29-year-old male presenting to emergency Department with complaints of right foot pain that has been ongoing for 1 week. One week ago, a weight bar with approximately 300+ pounds on it was accidentally dropped on the patient's right foot. Patient states he did present to the ER 1 week ago for same complaint and received an x-ray which was negative and was told to follow up with orthopedics in one to 2 days which he did not do. Patient does not have insurance and is unable to go to the orthopedic doctor. Patient states the pain has continued over the past week and he wanted to be reexamined. Patient works on his feet all day and he feels like he can feel cracking in his foot. Patient has no other complaints at this time. Denies fever, chills. Upon arrival to the ER, vital signs are stable. - Related Data Home Medications Medication Instructions Recorded Confirmed No Known Home Medications 07/28/19 08/05/19 Allergies Allergy/AdvReac Type Severity Reaction Status Date / Time No Known Allergies Allergy Verified 08/05/19 11:38 Review of Systems ROS Statement: Those systems with pertinent positive or pertinent negative responses have been documented in the HPI. ROS Other: All systems not noted in ROS Statement are negative. Past Medical History Past Medical History: Asthma, GERD/Reflux History of Any Multi-Drug Resistant Organisms: MRSA Date of last positivie culture/infection: 2010 MDRO Source:: penis Past Surgical History: Adenoidectomy, Appendectomy, Tonsillectomy Past Psychological History: Anxiety, Depression Smoking Status: Current every day smoker Past Alcohol Use History: Occasional Past Drug Use History: Marijuana General Exam - General Exam Comments Initial Comments: GENERAL: Well-appearing, well-nourished and in no acute distress. HEAD: Atraumatic, normocephalic. EYES: Pupils equal round and reactive to light, extraocular movements intact, sclera anicteric, conjunctiva are normal. ENT: Moist mucous membranes. NECK: Normal range of motion, supple without lymphadenopathy or JVD. LUNGS: Breath sounds clear to auscultation bilaterally and equal. No wheezes rales or rhonchi. HEART: Regular rate and rhythm without murmurs, rubs or gallops. EXTREMITIES: Pain with palpation on the dorsal aspect of the left distal foot across distal metatarsals. There is mild-moderate swelling and mild ecchymosis present. Patient is neurovascular intact. Patient has full range of motion of his right toes and right ankle. NEUROLOGICAL: Normal speech. PSYCH: Normal mood, normal affect. SKIN: Warm, Dry, normal turgor, no rashes or lesions noted. Limitations: no limitations Course Vital Signs 08/05/19 08/05/19 10:18 12:23 Temperature 97.3 F L Pulse Rate 69 70 Respiratory 16 18 Rate Blood Pressure 136/88 140/90 O2 Sat by Pulse 98 Oximetry Medical Decision Making - Medical Decision Making Patient is a 29-year-old male presenting with right foot pain times one week. Patient was evaluated in the ER 1 week ago for same injury. There is no evident fracture at that time. X-rays of the right foot today reveal a displaced fracture to the shaft of the second metatarsal. Patient was placed in a short leg splint and will follow up with orthopedics in the next 1- 3 days. Patient will remain nonweightbearing, a work note was given. Patient is agreeable with this plan of care. Patient will continue take Motrin, ice, compression, elevation for symptom relief. Patient is stable for discharge at this time. Case discussed with Dr. Estevez. Disposition Clinical Impression: Fracture of second metatarsal bone of right foot Disposition: HOME SELF-CARE Condition: Stable Instructions (If sedation given, give patient instructions): Foot Fracture in Adults (ED) Additional Instructions: Please return to the Emergency Department if symptoms worsen or any other concerns. Follow up with orthopedics next one to 3 days. Use ice, compression, elevation for symptom relief. Leave splint in place. No weightbearing on the right lower extremity. Is patient prescribed a controlled substance at d/c from ED?: No Referrals: None,Stated [Primary Care Provider] - 1-2 days Helena Marques DO [Doctor of Osteopathic Medicine] - 1-2 days
--- NOTE | 2019-08-05 11:21 | XR ---
EXAMINATION TYPE: XR foot complete RT DATE OF EXAM: 08/05/2019 COMPARISON: NONE HISTORY: Pain TECHNIQUE: Three views are submitted. FINDINGS: There is a displaced fracture involving the shaft second metatarsal. Remaining osseous structures int act. Joint spaces preserved. IMPRESSION: 1. Displaced fracture shaft second metatarsal
[2019-08-05 12:24] VITALS: BP 140/90; PULSE 70; RESP 18
== END 2019-08-05 12:24 | disposition home or self-care (01) ==
LOC: EC 10:16
DX: S92.321A Displaced fracture of second metatarsal bone, right foot, initial encounter for closed fracture (principal); F17.200 Nicotine dependence, unspecified, uncomplicated; Z86.14 Personal history of Methicillin resistant Staphylococcus aureus infection; W20.8XXA Other cause of strike by thrown, projected or falling object, initial encounter
CPT/HCPCS: 29515; 99283

== ENCOUNTER → 2019-08-15 | Outpatient (CLI) | payer BC | END | disposition home or self-care (01) | LOC: LABWHC1 10:18 | PROVIDERS: ATTEND Orthopaedic Surgery | DX: M79.671 Pain in right foot (principal); S92.324A Nondisplaced fracture of second metatarsal bone, right foot, initial encounter for closed fracture; E55.9 Vitamin D deficiency, unspecified | CPT/HCPCS: 36415; 82306 ==

== ENCOUNTER 2019-11-10 09:21 | Emergency (ER) | payer BC ==
[2019-11-10 09:26] VITALS: BP 110/71; RESP 18; TEMP 98.7
[2019-11-10] MEDS ORDERED: IPRATROPIUM-ALBUTEROL 3 ML NEB INHALATION STA (09:59)
--- NOTE | 2019-11-10 10:01 | ED ---
URI HPI - General Chief Complaint: Upper Respiratory Infection Stated Complaint: fever, swollen eye Time Seen by Provider: 11/10/19 09:31 Source: patient, RN notes reviewed Mode of arrival: ambulatory Limitations: no limitations - History of Present Illness Initial Comments: This a 29-year-old male present emergency department to complaint of fever cough congestion sinus pressure for last 2 weeks. Patient states it's not getting any better. Patient states that he has pressure underneath his right eye no visual disturbance no pain with ocular movement. Patient states that he has been blowing his nose but states he sniffs of the congestion quite often. Patient denies any difficulty swallowing, sore throat. Patient is a smoker, history of asthma. - Related Data Previous Rx's Medication Instructions Recorded Amoxicillin/Potassium Clav 1 tab PO Q12HR #20 tab 11/10/19 [Augmentin 875-125 Tablet] predniSONE 50 mg PO DAILY #5 tab 11/10/19 Allergies Allergy/AdvReac Type Severity Reaction Status Date / Time No Known Allergies Allergy Verified 11/10/19 09:26 Review of Systems ROS Statement: Those systems with pertinent positive or pertinent negative responses have been documented in the HPI. ROS Other: All systems not noted in ROS Statement are negative. Past Medical History Past Medical History: Asthma, GERD/Reflux History of Any Multi-Drug Resistant Organisms: MRSA Date of last positivie culture/infection: 2010 MDRO Source:: penis Past Surgical History: Adenoidectomy, Appendectomy, Tonsillectomy Past Psychological History: No Psychological Hx Reported Smoking Status: Current every day smoker Past Alcohol Use History: Occasional Past Drug Use History: Marijuana General Exam Limitations: no limitations General appearance: alert, in no apparent distress Head exam: Present: atraumatic, normocephalic, normal inspection Eye exam: Present: normal appearance, PERRL, EOMI. Absent: scleral icterus, conjunctival injection, periorbital swelling ENT exam: Present: mucous membranes moist, normal external ear exam. Absent: normal exam (Right maxillary sinus tenderness), normal oropharynx (Postnasal drainage), TM's normal bilaterally (Mild fluid noted in the right middle ear) Neck exam: Present: normal inspection, full ROM. Absent: tenderness, meningismus, lymphadenopathy Respiratory exam: Present: wheezes. Absent: normal lung sounds bilaterally, respiratory distress, rales, rhonchi, stridor Cardiovascular Exam: Present: regular rate, normal rhythm, normal heart sounds. Absent: systolic murmur, diastolic murmur, rubs, gallop, clicks Course Vital Signs 11/10/19 11/10/19 09:23 10:19 Temperature 98.7 F Pulse Rate 70 72 Respiratory 18 Rate Blood Pressure 110/71 - Reevaluation(s) Reevaluation #1: 11/10/19 10:01 I counseled the patient for smoking cessation for greater than 3 minutes Medical Decision Making - Medical Decision Making Chest x-ray is unremarkable influenza negative. Patient we treated for acute sinusitis he has right maxillary tenderness and persistent symptoms for 2 weeks. Patient states Augmentin advised to stop smoking return parameters were discussed. - Lab Data Lab Results 11/10/19 Range/Units Unknown Influenza Type A RNA Not Detected (Not Detectd) Influenza Type B (PCR) Not Detected (Not Detectd) Disposition Clinical Impression: Acute sinusitis, Bronchitis Disposition: HOME SELF-CARE Condition: Stable Instructions (If sedation given, give patient instructions): Upper Respiratory Infection (ED) Additional Instructions: Please return to the Emergency Department if symptoms worsen or any other concerns. Prescriptions: Amoxicillin/Potassium Clav [Augmentin 875-125 Tablet] 1 tab PO Q12HR #20 tab predniSONE 50 mg PO DAILY #5 tab Is patient prescribed a controlled substance at d/c from ED?: No Referrals: None,Stated [Primary Care Provider] - 1-2 days Time of Disposition: 10:30
--- NOTE | 2019-11-10 10:17 | XR ---
EXAMINATION TYPE: XR chest 2V DATE OF EXAM: 11/10/2019 COMPARISON: 07/09/2019 HISTORY: Fever and cough for 2 weeks TECHNIQUE: Frontal and lateral views of the chest are obtained. FINDINGS: There is no focal air space opacity, pleural effusion, or pneumothorax seen. The cardiac silhouette size is within normal limits. The osseous structures are intact. IMPRESSION: No acute cardiopulmonary process.
[2019-11-10 10:30] VITALS: PULSE 78
== END 2019-11-10 11:10 | disposition home or self-care (01) ==
LOC: EC 09:21
DX: J01.90 Acute sinusitis, unspecified (principal); J40 Bronchitis, not specified as acute or chronic; F17.200 Nicotine dependence, unspecified, uncomplicated; Z41.9 Encounter for procedure for purposes other than remedying health state, unspecified; Z86.14 Personal history of Methicillin resistant Staphylococcus aureus infection
CPT/HCPCS: 71046; 87502; 94640; 99283; 99406

== ENCOUNTER 2021-10-29 14:07 | Emergency (ER) | payer BC, OTHER ==
--- NOTE | 2021-10-29 16:20 | ED ---
General Adult HPI - General Chief complaint: Nausea/Vomiting/Diarrhea Stated complaint: Chest pain,fever Time Seen by Provider: 10/29/21 15:56 Source: patient Mode of arrival: ambulatory Limitations: no limitations - History of Present Illness Initial comments: This 31-year-old male presents to the emergency department with fever, cough, congestion 2 days. Patient is here to get tested for COVID-19 before he can return to work. Patient states he has also had 2 episodes of vomiting on Thursday and Thursday. He states he has also experienced 5-6 episodes of left- sided chest pain that come out of nowhere, lasting no longer than 10 minutes and is relieved on its own. Patient has been taking Motrin for his fever. Patient states he also experiences some mild shortness of breath when he has these episodes. Patient states he is able to keep down solids and liquids at this time staying hydrated drinking lots of water. Patient denies any chest pain or shortness of breath at this time. Patient denies any change in bowel or bladder, headache, dizziness, change in vision, abdominal pain, weakness, lightheadedness. - Related Data Previous Rx's Medication Instructions Recorded Albuterol Sulfate [Proair Hfa] 1 - 2 puff INHALATION Q4HR PRN #1 11/10/19 inhaler Amoxicillin/Potassium Clav 1 tab PO Q12HR #20 tab 11/10/19 [Augmentin 875-125 Tablet] predniSONE 50 mg PO DAILY #5 tab 11/10/19 Allergies Allergy/AdvReac Type Severity Reaction Status Date / Time No Known Allergies Allergy Verified 10/29/21 14:49 Review of Systems ROS Statement: Those systems with pertinent positive or pertinent negative responses have been documented in the HPI. ROS Other: All systems not noted in ROS Statement are negative. Past Medical History Past Medical History: Asthma, GERD/Reflux History of Any Multi-Drug Resistant Organisms: MRSA Date of last positivie culture/infection: 2010 MDRO Source:: penis Past Surgical History: Adenoidectomy, Appendectomy, Tonsillectomy Past Psychological History: No Psychological Hx Reported Smoking Status: Current every day smoker Past Alcohol Use History: Occasional Past Drug Use History: Marijuana General Exam Limitations: no limitations General appearance: alert, in no apparent distress Head exam: Present: atraumatic, normocephalic, normal inspection Eye exam: Present: normal appearance, EOMI ENT exam: Present: normal exam, mucous membranes moist Neck exam: Present: full ROM Respiratory exam: Present: normal lung sounds bilaterally. Absent: respiratory distress, wheezes, rales, rhonchi, stridor Cardiovascular Exam: Present: regular rate, normal rhythm, normal heart sounds. Absent: systolic murmur, diastolic murmur, rubs, gallop, clicks GI/Abdominal exam: Present: soft, normal bowel sounds. Absent: distended, tenderness, guarding, rebound, rigid Extremities exam: Present: full ROM. Absent: tenderness, calf tenderness Back exam: Absent: tenderness, CVA tenderness (R), CVA tenderness (L) Neurological exam: Present: alert, oriented X3, CN II-XII intact Psychiatric exam: Present: normal affect, normal mood Skin exam: Present: warm, dry, intact, normal color. Absent: rash Course Vital Signs 10/29/21 10/29/21 14:50 17:13 Temperature 98.4 F 98.5 F Pulse Rate 76 77 Respiratory 20 18 Rate Blood Pressure 116/84 127/87 O2 Sat by Pulse 96 95 Oximetry EKG Findings - EKG Comments: EKG Findings:: EKG interpretation: Normal sinus rhythm with sinus arrhythmia. Ventricular rate 68 bpm. MS interval 156. QRS duration 100. QTQTc 378/401 Medical Decision Making - Medical Decision Making This 31-year-old male presents to the emergency department with cough, congestion, fever 2 days. Patient is positive for COVID-19. Due to patient's episodes of chest pain and shortness of breath, obtained a chest x-ray and EKG. Chest x-ray impression: No acute cardiopulmonary disease/process. Ordered basic labs, d-dimer, and troponin, however patient refused and left AMA. Patient did follow AMA form. Discussed the risk of leaving and why these labs were needed, however, patient still refused and stated he wanted to leave. Patient did agree to coming back to the emergency department if chest pain or shortness of breath returned. Advised patient to get a pulse oximeter from home and to the return to the emergency department with oxygen dropped below 90%. Informed patient he should follow-up with primary care provider next 24-48 hours. Strict return precautions were discussed. Patient verbally agreed with plan. Case discussed with my attending, Dr. Champagne. - Lab Data Lab Results 01/25/22 Range/Units 14:53 Coronavirus (PCR) Detected A (Not Detectd) Disposition Clinical Impression: COVID-19 Disposition: HOME SELF-CARE Condition: Undetermined Instructions (If sedation given, give patient instructions): Coronavirus Disease 2019 (COVID-19) Additional Instructions: Please return to the emergency department with any concerning, new, or worsening symptoms. Can take [id number] zinc, vitamin C, vitamin D. Take Tylenol or Motrin as directed for symptom relief. Follow-up with primary care provider next 24-48 hours. Stay hydrated and drink plenty of water. Is patient prescribed a controlled substance at d/c from ED?: No Referrals: None,Stated [Primary Care Provider] - 1-2 days Time of Disposition: 17:10
[2021-10-29] MEDS ORDERED: SODIUM CHLORIDE 0.9% 500 ML 500 ML IV STA (17:01)
--- NOTE | 2021-10-29 17:10 | XR ---
EXAMINATION TYPE: XR chest 2V DATE OF EXAM: 10/29/2021 4:47 PM COMPARISON:Chest radiographs from 11/10/2019 TECHNIQUE: Frontal and lateral views of the chest. CLINICAL INDICATION:Male, 31 years old with history of sob; FINDINGS: Lungs/Pleura: There is no evidence of pleural effusion, focal consolidation, or pneumothorax. Pulmonary vascularity: Unremarkable. Heart/mediastinum: Cardiomediastinal silhouette is unremarkable. Musculoskeletal:No acute osseous pathology. IMPRESSION: No acute cardiopulmonary disease/process.
[2021-10-29 17:16] VITALS: BP 127/87; PULSE 77; RESP 18; TEMP 98.5
== END 2021-10-29 17:15 | disposition home or self-care (01) ==
LOC: EC 14:07
DX: U07.1 COVID-19 (principal); J45.909 Unspecified asthma, uncomplicated; K21.9 Gastro-esophageal reflux disease without esophagitis; F17.200 Nicotine dependence, unspecified, uncomplicated; F12.90 Cannabis use, unspecified, uncomplicated; Z79.51 Long term (current) use of inhaled steroids; Z79.52 Long term (current) use of systemic steroids
CPT/HCPCS: 71046; 87635; 93005; 99284

== ENCOUNTER → 2023-01-31 | Outpatient (CLI) | payer OTHER ==
--- NOTE | 2023-02-01 08:34 | MR ---
EXAMINATION TYPE: MR knee LT wo con DATE OF EXAM: 01/31/2023 COMPARISON: None HISTORY: Pain behind Lt knee and around patella, swelling TECHNIQUE: Multiplanar, multisequence imaging of the left knee is performed without IV contrast. FINDINGS: There are small focal bone contusions of the medial aspect of the medial femoral condyle and medial t ibial plateau without discrete fracture. There are mild strains of the anterior cruciate ligament and medial collateral ligament. There is a complex tear of the body and posterior horn of the medial meniscus. There is a moderate joint effusion. The lateral meniscus and lateral collateral ligaments are intact. The articular cartilages are normal. IMPRESSION: 1. Small bone contusions of the medial femoral condyle and medial tibial plateau without discrete fra cture 2. Complex tear of the medial meniscus. 3. Mild strains of the medial collateral ligament and anterior cruciate ligament. 4. Moderate joint effusion.
== END | disposition home or self-care (01) ==
LOC: RADMRIMAIN 14:55
PROVIDERS: ATTEND Orthopaedic Surgery
DX: S83.242A Other tear of medial meniscus, current injury, left knee, initial encounter (principal); S80.02XA Contusion of left knee, initial encounter; M25.462 Effusion, left knee

== ENCOUNTER 2023-06-15 20:08 | Emergency (ER) | payer OTHER ==
[2023-06-15 20:30] VITALS: BP 170/76; PULSE 71; RESP 20; TEMP 97.7
--- NOTE | 2023-06-15 20:30 | ED ---
Male Urogenital HPI - General Source: patient, RN notes reviewed Mode of arrival: ambulatory Limitations: no limitations <Lima Holloway - Last Filed: 06/15/23 20:31> <Jm Hernandez - Last Filed: 06/15/23 22:21> - General Chief complaint: Urogenital Stated complaint: std testing Time Seen by Provider: 06/15/23 20:25 - History of Present Illness Initial comments: This is a 33 year old male who presents to the emergency department for STD testing. The mother of his child just told him that she tested positive for syphillis, and he would like to be tested. Reports possible burning with urination, but is not quite sure. Denies any discharge. (Lima Holloway) Dictation was produced using [employer] dictation software. please excuse any grammatical, word or spelling errors. Chief Complaint: 33-year-old male presents emergency department for STD treatment History of Present Illness: 33-year-old male who presents emergency department for STD treatment and evaluation. He was told by the mother of his child that she tested positive for syphilis. Patient denies any other possible STD exposures. He denies any symptoms. Patient has no drug ALLERGIES. The ROS documented in this emergency department record has been reviewed and confirmed by me. Those systems with pertinent positive or negative responses have been documented in the HPI. All other systems are other negative and/or noncontributory. (Jm Hernandez) - Related Data Previous Rx's Medication Instructions Recorded Albuterol Sulfate [Proair Hfa] 1 - 2 puff INHALATION Q4HR PRN #1 11/10/19 inhaler Amoxicillin/Potassium Clav 1 tab PO Q12HR #20 tab 11/10/19 [Augmentin 875-125 Tablet] predniSONE 50 mg PO DAILY #5 tab 11/10/19 Allergies Allergy/AdvReac Type Severity Reaction Status Date / Time No Known Allergies Allergy Verified 10/29/21 14:49 Review of Systems ROS Other: All systems not noted in ROS Statement are negative. <Lima Holloway - Last Filed: 06/15/23 20:31> ROS Other: All systems not noted in ROS Statement are negative. <Jm Hernandez - Last Filed: 06/15/23 22:21> ROS Statement: Those systems with pertinent positive or pertinent negative responses have been documented in the HPI. Past Medical History Past Medical History: Asthma, GERD/Reflux History of Any Multi-Drug Resistant Organisms: MRSA Date of last positivie culture/infection: 2010 MDRO Source:: penis Past Surgical History: Adenoidectomy, Appendectomy, Tonsillectomy Past Psychological History: No Psychological Hx Reported Smoking Status: Current every day smoker Past Alcohol Use History: Occasional Past Drug Use History: Marijuana <Lima Holloway - Last Filed: 06/15/23 20:31> General Exam <Lima Holloway - Last Filed: 06/15/23 20:31> <Jm Hernandez - Last Filed: 06/15/23 22:21> - General Exam Comments Initial Comments: Visual Physical Exam Vital signs reviewed General: Well-appearing, nontoxic, no acute distress. Head: Normocephalic, atraumatic Eyes: PERRLA, EOMI ENT: Airway patent Chest: Nonlabored breathing Skin: No visual rash, normal skin tone Neuro: Alert and oriented 3 Musculoskeletal: No gross abnormalities I performed the QuickNote portion of this chart. Signed Lima Holloway PA-C. (Lima Holloway) PHYSICAL EXAM: General Impression: Alert and oriented x3, not in acute distress HEENT: Normocephalic atraumatic, extra-ocular movements intact, pupils equal and reactive to light bilaterally, mucous membranes moist. Cardiovascular: Heart regular rate and rhythm Chest: Able to complete full sentences, no retractions, no tachypnea Abdomen: abdomen soft, non-tender, non-distended, no organomegaly Musculoskeletal: Pulses present and equal in all extremities, no peripheral edema Motor: no focal deficits noted Neurological: CN II-XII grossly intact, no focal motor or sensory deficits noted Skin: Intact with no visualized rashes Psych: Normal affect and mood (Jm Hernandez) Course Vital Signs 06/15/23 20:27 Temperature 97.7 F Pulse Rate 71 Respiratory 20 Rate Blood Pressure 170/76 O2 Sat by Pulse 97 Oximetry Medical Decision Making <Jm Hernandez - Last Filed: 06/15/23 22:21> - Medical Decision Making Was pt. sent in by a medical professional or institution (Dr., PA, [facility], urgent care, hospital, or snf...) When possible be specific @ -No Did you speak to anyone other than the patient for history (EMS, parent, family, police, friend...)? What history was obtained from this source @ -No Did you review nursing and triage notes (agree or disagree)? Why? @ -I reviewed and agree with nursing and triage notes Were old charts reviewed (outside hosp., previous admission, EMS record, old EKG, old radiological studies, urgent care reports/EKG's, snf records)? Report findings @ -No old charts were reviewed Differential Diagnosis (chest pain, altered mental status, abdominal pain women, abdominal pain men, vaginal bleeding, musculoskeletal, weakness, fever, dyspnea, syncope, headache, dizziness, GI bleed, back pain, seizure, CVA, palpatations, mental health)? @ -not applicable EKG interpreted by me (3pts min.). @ -None done X-rays interpreted by me (1pt min.). @ -None done CT interpreted by me (1pt min.). @ -None done U/S interpreted by me (1pt. min.). @ -None done What testing was considered but not performed or refused? (CT, X-rays, U/S, labs)? Why? @ -None What meds were considered but not given or refused? Why? @ -None Did you discuss the management of the patient with other professionals (professionals i.e. TAN Malik, [facility], lab, RT, psych nurse, psychologist social, grove worker, teacher, [employer] revenue officer, egg caser)? Give summary @ -No Was smoking cessation discussed for >3mins.? @ -No Was critical care preformed (if so, how long)? @ -No Were there social determinants of health that impacted care today? How? (Homelessness, low income, unemployed, alcoholism, drug addiction, transportation, low edu. Level, literacy, decrease access to med. care, care home, rehab)? @ -No Was there de-escalation of care discussed even if they declined (Discuss DNR or withdrawal of care, Hospice)? DNR status @ -No What co-morbidities impacted this encounter? (DM, HTN, Smoking, COPD, CAD, Cancer, CVA, ARF, Chemo, Hep., AIDS, mental health diagnosis, sleep apnea, morbid obesity)? @ -None Was patient admitted / discharged? Hospital course, mention meds given and route, prescriptions, significant lab abnormalities, going to OR and other pertinent info. @ -33-year-old male presents with STD exposure previous told that his sexual partner tested positive for syphilis. Patient is asymptomatic. Vital signs stable. Physical examination is benign. Patient treated with STD empiric treatment including Zithromax ceftriaxone penicillin and Flagyl. Pending STD testing. Undiagnosed new problem with uncertain prognosis? @ -No Drug Therapy requiring intensive monitoring for toxicity (Heparin, Nitro, Insulin, Cardizem)? @ -No Were any procedures done? @ -No Diagnosis/symptom? Acute, or Chronic, or Acute on Chronic? Uncomplicated (without systemic symptoms) or Complicated (systemic symptoms)? @ -STD exposure Side effects of treatment? @ -No Exacerbation, Progression, or Severe Exacerbation? @ -No Poses a threat to life or bodily function? How? (Chest pain, [place], [place], pneumonia, PE, COPD, DKA, ARF, appy, cholecystitis, CVA, Diverticulitis, Homicidal, Suicidal, threat to staff... and all critical care pts) @ -yes (Jm Hernandez) - Lab Data Lab Results 06/15/23 Range/Units 21:25 Urine Color Yellow Urine Appearance Turbid (Clear) Urine pH 7.5 (5.0-8.0) Ur Specific [place] 1.022 (1.001-1.035) Urine Protein Trace H (Negative) Urine Glucose (UA) Negative (Negative) Urine Ketones Negative (Negative) Urine Blood Negative (Negative) Urine Nitrite Negative (Negative) Urine Bilirubin Negative (Negative) Urine Urobilinogen <2.0 (<2.0) mg/dL Ur Leukocyte Esterase Negative (Negative) Urine WBC <1 (0-5) /hpf Amorphous Sediment Few H (None) /hpf Urine Bacteria Few H (None) /hpf Urine Mucus Rare H (None) /hpf Disposition <Lima Holloway - Last Filed: 06/15/23 20:31> Is patient prescribed a controlled substance at d/c from ED?: No Time of Disposition: 22:21 <Jm Hernandez - Last Filed: 06/15/23 22:21> Clinical Impression: STD (male) Disposition: HOME SELF-CARE Condition: Good Instructions (If sedation given, give patient instructions): Sexually Transmitted Diseases (ED) Referrals: None,Stated [Primary Care Provider] - 1-2 days
[2023-06-15 21:53] LABS: Amorphous Sediment,Urine Few /hpf; Appearance,Urine Turbid (Clear); Bacteria,Urine Few /hpf; Bilirubin,Urine Negative (Negative); Blood,Urine Negative (Negative); Color,Urine Yellow; Glucose,Urine (UA) Negative (Negative); Ketones,Urine Negative (Negative); Leukocyte Esterase,Urine Negative (Negative); Mucus,Urine Rare /hpf; Nitrite,Urine Negative (Negative); PH, Urine 7.5 (5.0-8.0); Protein,Urine Trace (Negative); Specific Gravity,Urine 1.022 (1.001-1.035); Urobilinogen,Urine <2.0 mg/dL (<2.0); WBC,Urine <1 /hpf (0-5)
[2023-06-15] MEDS ORDERED: cefTRIAXone 1,000 MG VIAL (IM USE) IM STA (22:16)
[2023-06-15] MEDS ORDERED: AZITHROMYCIN 500 MG TAB PO STA (22:16)
[2023-06-15] MEDS ORDERED: metroNIDAZOLE 500 MG TAB PO STA (22:18)
[2023-06-15] MEDS ORDERED: PENICILLIN G BENZATHINE 1,200,000 UNIT/2 ML SYRINGE IM ONE (22:30)
[2023-06-17 09:58] LABS: Chlamydia trachomatis rRNA Not detected; Neisseria gonorrhoeae rRNA Not detected
== END 2023-06-15 22:48 | disposition home or self-care (01) ==
LOC: EC 20:08
DX: A64 Unspecified sexually transmitted disease (principal); J45.909 Unspecified asthma, uncomplicated; F17.200 Nicotine dependence, unspecified, uncomplicated; F12.90 Cannabis use, unspecified, uncomplicated
CPT/HCPCS: 87591; 87491; 81001; 99283; 96372 ×2; J0561; J0696

== ENCOUNTER 2023-07-31 12:08 | Emergency (ER) | payer OTHER ==
[2023-07-31 12:36] VITALS: TEMP 97.1
[2023-07-31] MEDS ORDERED: SODIUM CHLORIDE 0.9% 1,000 ML IV ONE (12:46)
--- NOTE | 2023-07-31 13:11 | ED ---
General Adult HPI - General Chief complaint: Neuro Symptoms/Deficit Stated complaint: numbness on right side Time Seen by Provider: 07/31/23 12:46 Source: patient, RN notes reviewed Mode of arrival: ambulatory Limitations: no limitations - History of Present Illness Initial comments: 33-year-old male with no significant past medical history presents to the emergency department with a chief complaint of left-sided facial numbness. He reports that it had sudden onset yesterday around 12:00 why he was working. He denies any injury or trauma. He reports that it resolved on its own. He has only had this one time before however he did not get evaluated for it. Today he reports that he sat left-sided facial numbness and tingling has not taken anything for his symptoms. Denies any dizziness, lightheadedness, vision changes or vision loss, headache. - Related Data Previous Rx's Medication Instructions Recorded Albuterol Sulfate [Proair Hfa] 1 - 2 puff INHALATION Q4HR PRN #1 11/10/19 inhaler Amoxicillin/Potassium Clav 1 tab PO Q12HR #20 tab 11/10/19 [Augmentin 875-125 Tablet] predniSONE 50 mg PO DAILY #5 tab 11/10/19 Allergies Allergy/AdvReac Type Severity Reaction Status Date / Time No Known Allergies Allergy Verified 10/29/21 14:49 Review of Systems ROS Statement: Those systems with pertinent positive or pertinent negative responses have been documented in the HPI. ROS Other: All systems not noted in ROS Statement are negative. Past Medical History Past Medical History: Asthma, GERD/Reflux History of Any Multi-Drug Resistant Organisms: MRSA Date of last positivie culture/infection: 2010 MDRO Source:: penis Past Surgical History: Adenoidectomy, Appendectomy, Orthopedic Surgery, Tonsillectomy Additional Past Surgical History / Comment(s): left knee surgery torn meniscus Past Psychological History: No Psychological Hx Reported Smoking Status: Current every day smoker Past Alcohol Use History: Occasional Past Drug Use History: Marijuana General Exam - General Exam Comments Initial Comments: General: Alert, in no acute distress Head: atraumatic normocephalic. Eyes PERRL, EOMI intact, mucous membranes moist Respiratory: Lungs clear to auscultation bilaterally Cardiovascular: Heart heart rate regular rate and rhythm Abdominal: Soft without guarding or rebound Extremities: Normal inspection with full range of motion and normal capillary refill Neuroogic: alert and oriented 3, CN II-XII intact, able to ambulate with steady gait Skin: warm dry and intact with normal color Limitations: no limitations Neurological exam: Present: alert, altered, oriented X3, CN II-XII intact Expanded Neurological exam: Absent: receptive aphasia, expressive aphasia Patient oriented to: Present: person, place, time Speech: Absent: receptive aphasia, expressive aphasia Cranial nerves: EOM's Intact: Normal, Gag Reflex: Normal, Tongue Deviation: Normal, Nystagmus: Normal Cerebellar function: Finger to Nose: Normal, Heel to [place]: Normal Upper motor neuron: Jerardo Neglect: Normal, Pronator Drift: Normal Sensory exam: Upper Extremity Light Touch: Normal, Lower Extremity Light Touch: Normal Motor strength exam: RUE: 5, LUE: 5, RLE: 5, LLE: 5 Eye Response: (4) open spontaneously Motor Response: (6) obeys commands Verbal Response: (5) oriented Course Vital Signs 07/31/23 07/31/23 12:27 14:25 Temperature 97.1 F L Pulse Rate 72 70 Respiratory 18 20 Rate Blood Pressure 113/62 114/70 O2 Sat by Pulse 99 98 Oximetry - Reevaluation(s) Reevaluation #1: 07/31/23 14:06 Pt reevaluated and updated on results. Patient agreeable with the plan for discharge. EKG Findings - EKG Comments: EKG Findings:: I interpreted the following: EKG performed at 13:05 rate 59 bpm and sinus bradycardia. MD interval 163, QS duration 105, QT/QTc 385/384 Medical Decision Making - Medical Decision Making Was pt. sent in by a medical professional or institution (Dr. PA, [facility], urgent care, hospital, or retirement...) When possible be specific @ -[No] Did you speak to anyone other than the patient for history (EMS, parent, family, police, friend...)? What history was obtained from this source @ -[No] Did you review nursing and triage notes (agree or disagree)? Why? @ -[I reviewed and agree with nursing and triage notes] Were old charts reviewed (outside hosp., previous admission, EMS record, old EKG, old radiological studies, urgent care reports/EKG's, retirement records)? Report findings @ -[No old charts were reviewed] Differential Diagnosis (chest pain, altered mental status, abdominal pain women, abdominal pain men, vaginal bleeding, weakness, fever, dyspnea, syncope, headache, dizziness, GI bleed, back pain, seizure, CVA, palpatations, mental health, musculoskeletal)? @ -[not applicable] EKG interpreted by me (3pts min.). @ -[As above] X-rays interpreted by me (1pt min.). @ -[None done] CT interpreted by me (1pt min.). @ -CT head does not reveal any intracranial process. U/S interpreted by me (1pt. min.). @ -[None done] What testing was considered but not performed or refused? (CT, X-rays, U/S, labs)? Why? @ -[None] What meds were considered but not given or refused? Why? @ -[None] Did you discuss the management of the patient with other professionals (professionals i.e. , PA, [facility], lab, RT, psych nurse, social science manager, labor and delivery registered nurse, teacher, chief security officer, comp field case manager)? Give summary @ -[No] Was smoking cessation discussed for >3mins.? @ -[No] Was critical care preformed (if so, how long)? @ -[No] Were there social determinants of health that impacted care today? How? (Homelessness, low income, unemployed, alcoholism, drug addiction, transportation, low edu. Level, literacy, decrease access to med. care, half-way, rehab)? @ -[No] Was there de-escalation of care discussed even if they declined (Discuss DNR or withdrawal of care, Hospice)? DNR status @ -[No] What co-morbidities impacted this encounter? (DM, HTN, Smoking, COPD, CAD, Cancer, CVA, ARF, Chemo, Hep., AIDS, mental health diagnosis, sleep apnea, morbid obesity)? @ -[None] Was patient admitted / discharged? Hospital course, mention meds given and route, prescriptions, significant lab abnormalities, going to OR and other pertinent info. @ -Discharged. 33-year-old male presents emergency Department with chief complaint of left-sided facial numbness. Patient had a thorough history and physical exam performed. Physical exam essentially unremarkable. Heart rate regular rate and rhythm, lungs clear to auscultation bilaterally abdomen soft and nontender. No focal neurologic deficits on exam. Patient able to ambulate with steady gait and move extremities freely. Patient had lab work and imaging which were essentially unremarkable. I discussed results in detail the patient verbalized understanding and all questions were addressed. Agreeable with plan for discharge home. Recommend close follow-up with PCP in 1-2 days. Return precautions discussed. Case discussed with [facility]. Armendariz [facility] who agrees with plan of care Undiagnosed new problem with uncertain prognosis? @ -[No] Drug Therapy requiring intensive monitoring for toxicity (Heparin, Nitro, Insulin, Cardizem)? @ -[No] Were any procedures done? @ -[No] Diagnosis/symptom? @ -Facial Numbness Acute, or Chronic, or Acute on Chronic? @ -Acute Uncomplicated (without systemic symptoms) or Complicated (systemic symptoms)? @ -Uncomplicated Side effects of treatment? @ -[No] Exacerbation, Progression, or Severe Exacerbation? @ -[No] Poses a threat to life or bodily function? How? (Chest pain, [place], [place], pneumonia, PE, COPD, DKA, ARF, appy, cholecystitis, CVA, Diverticulitis, Homicidal, Suicidal, threat to staff... and all critical care pts) @ -Low likelihood - Lab Data Result diagrams: 07/31/23 13:02 07/31/23 13:02 Lab Results 07/31/23 07/31/23 07/31/23 Range/Units 13:02 13:02 13:02 WBC 5.3 (3.8-10.6) k/uL RBC 4.95 (4.30-5.90) m/uL Hgb 15.6 (13.0-17.5) gm/dL Hct 45.4 (39.0-53.0) % MCV 91.7 (80.0-100.0) fL MCH 31.5 (25.0-35.0) pg MCHC 34.3 (31.0-37.0) g/dL RDW 12.2 (11.5-15.5) % Plt Count 170 (150-450) k/uL MPV 8.6 Neutrophils % 49 % Lymphocytes % 35 % Monocytes % 7 % Eosinophils % 7 % Basophils % 1 % Neutrophils # 2.6 (1.3-7.7) k/uL Lymphocytes # 1.9 (1.0-4.8) k/uL Monocytes # 0.4 (0-1.0) k/uL Eosinophils # 0.4 (0-0.7) k/uL Basophils # 0.0 (0-0.2) k/uL PT (10.0-12.5) sec INR (<1.2) APTT (22.0-30.0) sec Sodium 138 (137-145) mmol/L Potassium 4.8 (3.5-5.1) mmol/L Chloride 106 (98-107) mmol/L Carbon Dioxide 24 (22-30) mmol/L Anion Gap 8 mmol/L BUN 17 (9-20) mg/dL Creatinine 0.80 (0.66-1.25) mg/dL Est GFR (CKD-EPI)AfAm >90 (>60 ml/min/1.73 sqM) Est GFR (CKD-EPI)NonAf >90 (>60 ml/min/1.73 sqM) Glucose 81 (74-99) mg/dL Calcium 9.3 (8.4-10.2) mg/dL Total Bilirubin 0.7 (0.2-1.3) mg/dL AST 27 (17-59) U/L ALT 18 (4-49) U/L Alkaline Phosphatase 76 (38-126) U/L Total Protein 6.7 (6.3-8.2) g/dL Albumin 4.3 (3.5-5.0) g/dL Urine Color Yellow Urine Appearance Cloudy (Clear) Urine pH 7.0 (5.0-8.0) Ur Specific [place] 1.025 (1.001-1.035) Urine Protein Negative (Negative) Urine Glucose (UA) Negative (Negative) Urine Ketones Negative (Negative) Urine Blood Negative (Negative) Urine Nitrite Negative (Negative) Urine Bilirubin Negative (Negative) Urine Urobilinogen <2.0 (<2.0) mg/dL Ur Leukocyte Esterase Negative (Negative) Urine RBC <1 (0-5) /hpf Amorphous Sediment Many H (None) /hpf Urine Mucus Rare H (None) /hpf 07/31/23 Range/Units 13:02 WBC (3.8-10.6) k/uL RBC (4.30-5.90) m/uL Hgb (13.0-17.5) gm/dL Hct (39.0-53.0) % MCV (80.0-100.0) fL MCH (25.0-35.0) pg MCHC (31.0-37.0) g/dL RDW (11.5-15.5) % Plt Count (150-450) k/uL MPV Neutrophils % % Lymphocytes % % Monocytes % % Eosinophils % % Basophils % % Neutrophils # (1.3-7.7) k/uL Lymphocytes # (1.0-4.8) k/uL Monocytes # (0-1.0) k/uL Eosinophils # (0-0.7) k/uL Basophils # (0-0.2) k/uL PT 11.2 (10.0-12.5) sec INR 1.0 (<1.2) APTT 27.6 (22.0-30.0) sec Sodium (137-145) mmol/L Potassium (3.5-5.1) mmol/L Chloride (98-107) mmol/L Carbon Dioxide (22-30) mmol/L Anion Gap mmol/L BUN (9-20) mg/dL Creatinine (0.66-1.25) mg/dL Est GFR (CKD-EPI)AfAm (>60 ml/min/1.73 sqM) Est GFR (CKD-EPI)NonAf (>60 ml/min/1.73 sqM) Glucose (74-99) mg/dL Calcium (8.4-10.2) mg/dL Total Bilirubin (0.2-1.3) mg/dL AST (17-59) U/L ALT (4-49) U/L Alkaline Phosphatase (38-126) U/L Total Protein (6.3-8.2) g/dL Albumin (3.5-5.0) g/dL Urine Color Urine Appearance (Clear) Urine pH (5.0-8.0) Ur Specific [place] (1.001-1.035) Urine Protein (Negative) Urine Glucose (UA) (Negative) Urine Ketones (Negative) Urine Blood (Negative) Urine Nitrite (Negative) Urine Bilirubin (Negative) Urine Urobilinogen (<2.0) mg/dL Ur Leukocyte Esterase (Negative) Urine RBC (0-5) /hpf Amorphous Sediment (None) /hpf Urine Mucus (None) /hpf Disposition Clinical Impression: Facial numbness Disposition: HOME SELF-CARE Condition: Stable Instructions (If sedation given, give patient instructions): Paresthesia (ED) Additional Instructions: Please monitor symptoms closely Please return to the nearest emergency department symptoms worsen or persist Is patient prescribed a controlled substance at d/c from ED?: No Referrals: None,Stated [Primary Care Provider] - 1-2 days Time of Disposition: 14:21
[2023-07-31 13:12] LABS: Basophils % (A) 1 %; Eosinophils # (A) 0.4 k/uL (0-0.7); Eosinophils % (A) 7 %; HCT 45.4 % (39.0-53.0); HGB 15.6 gm/dL (13.0-17.5); Lymphocytes # (A) 1.9 k/uL (1.0-4.8); Lymphocytes % (A) 35 %; MCH 31.5 pg (25.0-35.0); MCHC 34.3 g/dL (31.0-37.0); MCV 91.7 fL (80.0-100.0); Mean Platelet Volume 8.6; Monocytes # (A) 0.4 k/uL (0-1.0); Monocytes % (A) 7 %; Neutrophils # (A) 2.6 k/uL (1.3-7.7); Neutrophils % (A) 49 %; Platelet Count 170 k/uL (150-450); RBC 4.95 m/uL (4.30-5.90); RDW 12.2 % (11.5-15.5); WBC 5.3 k/uL (3.8-10.6)
[2023-07-31 13:27] LABS: ALT 18 U/L (4-49); AST 27 U/L (17-59); African American GFR (CKD) >90 (>60 ml/min/1.73 sqM); Albumin 4.3 g/dL (3.5-5.0); Alkaline Phosphatase 76 U/L (38-126); Anion Gap 8 mmol/L; Blood Urea Nitrogen 17 mg/dL (9-20); Calcium 9.3 mg/dL (8.4-10.2); Carbon Dioxide 24 mmol/L (22-30); Chloride 106 mmol/L (98-107); Glucose 81 mg/dL (74-99); Non-African American GFR(CKD) >90 (>60 ml/min/1.73 sqM); Potassium 4.8 mmol/L (3.5-5.1); Sodium 138 mmol/L (137-145); Total Bilirubin 0.7 mg/dL (0.2-1.3); Total Protein 6.7 g/dL (6.3-8.2)
--- NOTE | 2023-07-31 13:28 | CT ---
EXAMINATION TYPE: CT brain wo con DATE OF EXAM: 07/31/2023 COMPARISON: None available. HISTORY: Left facial numbness. CT DLP: 1169.6 mGycm. Automated Exposure Control for Dose Reduction was Utilized. TECHNIQUE: CT scan of the head is performed without contrast. FINDINGS: There is no acute intracranial hemorrhage, mass effect, or midline shift identified. The ventricles and sulci are within normal limits in size. The globes are intact and the visualized sin uses are clear. IMPRESSION: No acute intracranial hemorrhage, mass effect, or midline shift is seen.
[2023-07-31 13:36] LABS: Appearance,Urine Cloudy (Clear); Color,Urine Yellow; Partial Thromboplastin Time 27.6 sec (22.0-30.0); Prothrombin Time 11.2 sec (10.0-12.5)
[2023-07-31 13:37] LABS: Bilirubin,Urine Negative (Negative); Blood,Urine Negative (Negative); Glucose,Urine (UA) Negative (Negative); Ketones,Urine Negative (Negative); Leukocyte Esterase,Urine Negative (Negative); Nitrite,Urine Negative (Negative); Protein,Urine Negative (Negative); Specific Gravity,Urine 1.025 (1.001-1.035); Urobilinogen,Urine <2.0 mg/dL (<2.0)
[2023-07-31 13:39] LABS: Amorphous Sediment,Urine Many /hpf; Mucus,Urine Rare /hpf; RBC,Urine <1 /hpf (0-5)
[2023-07-31 14:40] VITALS: BP 114/70; PULSE 70; RESP 20
== END 2023-07-31 14:27 | disposition home or self-care (01) ==
LOC: EC 12:08
DX: R20.2 Paresthesia of skin (principal); R00.1 Bradycardia, unspecified; J45.909 Unspecified asthma, uncomplicated; F17.200 Nicotine dependence, unspecified, uncomplicated; F12.90 Cannabis use, unspecified, uncomplicated
CPT/HCPCS: 36415; 70450; 80053; 81001; 85025; 85610; 85730; 93005; 96360; 99284